=== PATIENT | female | born 1990 | race African-American/Black ===

== ENCOUNTER 2018-06-01 18:33 | Emergency (ER) | payer OTHER ==
[~2018-06-01] VITALS: Ht 167.6 cm; Wt 105.2 kg
[2018-06-01 20:49] LABS: URINE BILIRUBIN NEGATIVE (Negative); URINE BLOOD 3+ (Negative); URINE CLARITY SL CLOUDY; URINE COLOR YELLOW; URINE GLUCOSE-RANDOM* NEGATIVE (Negative); URINE KETONES NEGATIVE (Negative); URINE LEUKOCYTES-REFLEX NEGATIVE (Negative); URINE NITRITE-REFLEX NEGATIVE (Negative); URINE PROTEIN (DIPSTICK) TRACE (Negative); URINE SPECIFIC GRAVITY >= 1.030 (1.005-1.035); URINE UROBILINOGEN 0.2 E.U./dl (0.2-1.0)
[2018-06-01 21:13] LABS: BACTERIA-REFLEX 1-9 Few /HPF (None Seen); CASTS None Seen /LPF (None Seen); CRYSTALS None Seen /LPF (None Seen); SQUAMOUS 0-3 Few /LPF (0-3); URINE RBC >20 Many /HPF (0-2); URINE WBC-REFLEX None Seen /HPF (0-5)
[2018-06-01] MEDS ORDERED: IBUPROFEN 600600 M1 PO (21:26)
[2018-06-01] MEDS ORDERED: NORFLEX100 MG PO (21:26)
[2018-06-01] MEDS ORDERED: TRAMADOL 50 MG50 MG PO (21:26)
[2018-06-01 21:45] VITALS: BP 123/78
== END 2018-06-01 21:46 | disposition home or self-care (01) ==
LOC: ER 18:33
PROVIDERS: Physician Assistant
DX: S60.221A Contusion of right hand, initial encounter (principal); R07.89 Other chest pain; V43.52XA Car driver injured in collision with other type car in traffic accident, initial encounter; Y93.89 Activity, other specified; Y92.89 Other specified places as the place of occurrence of the external cause; Y99.8 Other external cause status